=== PATIENT | male | born 1990 | race Caucasian/White ===

== ENCOUNTER 2022-10-10 14:11 | Emergency (ER) | payer OTHER ==
[2022-10-10 14:27] VITALS: RESP 18; TEMP 98; BMI 34.4
[2022-10-10] MEDS ORDERED: SODIUM CHLORIDE 1,000 ML IV STA (15:56)
[2022-10-10] MEDS ORDERED: FAMOTIDINE 20 MG/50 ML IVPB 20 MG/50 ML MG IVPB ONE ×2 (15:56→16:03)
[2022-10-10 16:54] VITALS: BP 119/74; PULSE 79
[2022-10-10 17:02] LABS: BASO % 0.4 % (0-2.0); EOS % 1.4 % (0-4.5); HEMATOCRIT 47.1 % (35.4-49); HEMOGLOBIN 17.1 GM/dL (11.7-16.9); LYMPH % 35.6 % (8-40); MCH 29.5 pg (25.7-33.7); MCHC 36.2 g/dl (32.0-35.9); MEAN CELL VOLUME 81.4 fl (80-96); MEAN PLT VOLUME 8.3 fl (7.5-11.1); MONO % 6.6 % (3.8-10.2); PLATELET COUNT 185 10^3/uL (134-434); RBC 5.78 M/mm3 (4.00-5.60); RDW 13.3 % (11.9-15.9); WHITE BLOOD COUNT 9.9 K/mm3 (4.0-10.0)
[2022-10-10 17:15] LABS: URINE APPEARANCE CLEAR; URINE BILIRUBIN NEGATIVE (NEGATIVE); URINE COLOR YELLOW; URINE GLUCOSE (UA) NEGATIVE (NEGATIVE); URINE KETONE NEGATIVE (NEGATIVE); URINE LEUK ESTERASE NEGATIVE (NEGATIVE); URINE NITRITE NEGATIVE (NEGATIVE); URINE PROTEIN NEGATIVE (NEGATIVE); URINE UROBILINOGEN 0.2 mg/dL (0.2-1.0)
[2022-10-10 18:05] LABS: CALCIUM 9.3 mg/dL (8.5-10.1)
[2022-10-10 18:06] LABS: ALBUMIN 4.2 g/dl (3.4-5.0); BLOOD UREA NITROGEN 15.3 mg/dL (7-18)
[2022-10-10 18:08] LABS: CREATININE 1.1 mg/dL (0.55-1.3)
[2022-10-10 18:10] LABS: BILIRUBIN,TOTAL 0.7 mg/dL (0.2-1)
[2022-10-10 18:11] LABS: TOT PROT 7.8 g/dl (6.4-8.2)
== END 2022-10-10 18:29 | disposition home or self-care (01) ==
LOC: JER 14:11
PROC: 3E033GC Introduction of Other Therapeutic Substance into Peripheral Vein, Percutaneous Approach (ICD-10-PCS; principal; 2022-10-10)
PROC: 3E0337Z Introduction of Electrolytic and Water Balance Substance into Peripheral Vein, Percutaneous Approach (ICD-10-PCS; 2022-10-10)
DX: K21.9 Gastro-esophageal reflux disease without esophagitis (principal)
CPT/HCPCS: 36415; 80053; 81003; 83690; 85025; 93005; 93010; 96360; 96374; 99284-25

== ENCOUNTER 2024-04-28 15:54 | Emergency (ER) | payer OTHER ==
[2024-04-28 16:15] VITALS: BP 141/82; PULSE 87; RESP 16; TEMP 98.3; BMI 26.4
[2024-04-28] MEDS ORDERED: KETOROLAC TROMETHAMINE 30 MG/1 ML VIAL ONE (17:18)
[2024-04-28] MEDS ORDERED: ACETAMINOPHEN 500 MG TABLET (FP) ONE (17:18)
[2024-04-28] MEDS ORDERED: ONDANSETRON *ODT* 4 MG TABLET ONE (17:19)
[2024-04-28] MEDS: ACETAMINOPHEN 500 MG TABLET (FP) PO ONE (17:23)
[2024-04-28] MEDS: ONDANSETRON *ODT* 4 MG TABLET SL ONE (17:23)
[2024-04-28] MEDS: KETOROLAC TROMETHAMINE 30 MG/1 ML VIAL IM ONE (17:23)
[2024-04-28 18:54] LABS: HIV INTERPRETATION NEGATIVE (NEGATIVE)
== END 2024-04-28 20:15 | disposition home or self-care (01) ==
LOC: JER 15:54
DX: R51.9 Headache, unspecified (principal); J32.9 Chronic sinusitis, unspecified; R42 Dizziness and giddiness; R11.0 Nausea; Z20.822 Contact with and (suspected) exposure to COVID-19
CPT/HCPCS: 0241U-QW; 36415; 70450-TC; 86803; 87389; 99284-25